=== PATIENT | male | born 1990 | race African-American/Black ===

== ENCOUNTER 2018-11-12 21:19 | Emergency (ER) | payer SELFPAY ==
[~2018-11-12] VITALS: Ht 180.3 cm; Wt 69.0 kg
[2018-11-13] MEDS ORDERED: KETOROLAC 60MG/2ML VIAL IM STA (01:14)
[2018-11-13] MEDS ORDERED: VISCOUS LIDOCAINE 2% 15 ML UDC PO STA (01:14)
[2018-11-13] MEDS ORDERED: MAGNESIUM/ALUMINUM HYDROXIDE/SIMETHICONE 30ML UDC PO STA (01:14)
[2018-11-13 01:59] LABS: BASOPHILS % 0.3 % (0.0-2.0); EOSINOPHILS % 0.6 % (0.0-5.0); HEMATOCRIT. 46.9 % (42.0-52.0); HEMOGLOBIN. 16.1 g/dL (14.0-18.0); LYMPHOCYTES % 26.9 % (20.0-50.0); MEAN CORPUSCULAR HEMOGLOBIN 29.8 pg (28.0-32.0); MEAN CORPUSCULAR VOLUME 86.6 fL (80.0-94.0); MEAN PLATELET VOLUME 7.8 fl (7.4-10.4); MONOCYTES % 8.5 % (2.0-8.0); NEUTROPHILS % 63.7 % (40.0-76.0); PLATELET 297 x1000/uL (130-400); RED BLOOD CELL COUNT 5.41 mill/uL (4.7-6.1); RED CELL DISTRIBUTION WIDTH 13.2 % (11.6-14.6)
[2018-11-13 02:05] LABS: CHLORIDE 105 mEq/L (98-107)
[2018-11-13 02:09] LABS: ETHANOL BLOOD < 10 mg/dL
[2018-11-13 02:45] VITALS: BP 137/87
== END 2018-11-13 04:31 | disposition home or self-care (01) ==
LOC: ER 21:44
DX: G89.29 Other chronic pain (principal); J02.9 Acute pharyngitis, unspecified; F17.210 Nicotine dependence, cigarettes, uncomplicated
CPT/HCPCS: 36415; 71045; 80053; 80320; 83690; 85025; 96372; 99284; J1885; G0480

== ENCOUNTER 2018-12-08 17:30 | Emergency (ER) | payer SELFPAY ==
[~2018-12-08] VITALS: Ht 180.3 cm; Wt 69.0 kg
[2018-12-08 18:58] VITALS: BP 132/96
[2018-12-08] MEDS ORDERED: IBUPROFEN 600MG TABLET PO ONE (19:00)
== END 2018-12-08 19:15 | disposition home or self-care (01) ==
LOC: ER 17:30
DX: S90.561A Insect bite (nonvenomous), right ankle, initial encounter (principal); W57.XXXA Bitten or stung by nonvenomous insect and other nonvenomous arthropods, initial encounter; Y93.9 Activity, unspecified; Y92.9 Unspecified place or not applicable
CPT/HCPCS: 99283

== ENCOUNTER 2019-04-24 17:11 | Emergency (ER) | payer MEDICAID ==
[~2019-04-24] VITALS: Ht 180.3 cm; Wt 68.0 kg
[2019-04-24] MEDS ORDERED: SULFAMETHOXAZOLE/TRIMETHOPRIM 800/160MG TABLET PO ONE (20:15)
[2019-04-24] MEDS ORDERED: CEPHALEXIN 250MG CAPSULE PO ONE (20:15)
[2019-04-24] MEDS ORDERED: KETOROLAC 30MG/ML VIAL IM ONE (20:15)
[2019-04-24 22:38] VITALS: BP 121/78
== END 2019-04-24 22:38 | disposition home or self-care (01) ==
LOC: ER 17:11
DX: L03.116 Cellulitis of left lower limb (principal); M79.89 Other specified soft tissue disorders
CPT/HCPCS: 73610; 96372; 99283; J1885; Z7610